=== PATIENT | female | born 1995 | race Caucasian/White ===

== ENCOUNTER 2021-10-02 10:51 | Emergency (ER) | payer BC ==
[2021-10-02] MEDS ORDERED: NA CHLORIDE 0.9% 250 ML ONE (11:47)
[2021-10-02] MEDS ORDERED: CASIRIVIMAB/IMDEVIMAB 10 ML VIAL ONE (11:48)
[2021-10-02] MEDS ORDERED: NA CHLORIDE 0.9% 50 ML ONE (12:12)
--- NOTE | 2021-10-02 13:46 | RAD REPORT ---
EXAM DESCRIPTION: RAD - Chest Single View - 10/02/2021 12:07 pm CLINICAL HISTORY: COVID +;Cough Chest pain. COMPARISON: No comparisons FINDINGS: Portable technique limits examination quality. The lungs are grossly clear. The heart is normal in size. No displaced fractures. IMPRESSION: No acute intrathoracic process suspected.
--- NOTE | 2021-10-02 13:54 | EDPHYS ---
Physician Documentation [facility] Name: Dilcia Marte Age: 26 yrs Sex: Female : 1995 Arrival Date: 10/02/2021 Time: 10:54 Bed 11 Private MD: ED Physician Steve Randall HPI: 10/02 12:01 This 26 yrs old Female presents to ER via Unassigned with complaints of COVID+. rn 12:01 The patient or guardian reports cough, that is intermittent, described as moderate. rn Onset: The symptoms/episode began/occurred 3 day(s) ago. Severity of symptoms: At their worst the symptoms were moderate, in the emergency department the symptoms are unchanged. Modifying factors: The symptoms are alleviated by nothing, the symptoms are aggravated by nothing. The patient has not experienced similar symptoms in the past. The patient has not recently seen a physician. Patient reports 3 or 4 days of symptoms, Covid PCR positive. Patient reports cough, headache, fatigue and malaise. Was Covid vaccinated. also Covid positive that he is getting better. Denies shortness of breath. - Immunization history:: Adult Immunizations unknown. - Family history:: not pertinent. - Social history:: Smoking status: unknown. - Hospitalizations: : No recent hospitalization is reported. ROS: 12:01 Constitutional: Negative for weight loss Eyes: Negative for injury, pain, redness, and rn mds coordinator, ENT: + for congestion Neck: Negative for injury, pain, and swelling, Cardiovascular: Negative for chest pain, palpitations, and edema, Respiratory: + cough, negative for sob, negative for hemoptysis Abdomen/GI: Negative for abdominal pain, nausea, vomiting, diarrhea, and constipation, MS/Extremity: Negative for injury and deformity, Skin: Negative for injury, rash, and discoloration, Neuro: Negative for numbness, tingling, and seizure. Exam: 12:01 Constitutional: This is a well developed, well nourished patient who is awake, alert, rn and in no acute distress. Head/Face: Normocephalic, atraumatic. Eyes: Periorbital areas with no swelling, redness, or edema. ENT: No stridor Neck: Trachea midline, no masses palpated, and no cervical lymphadenopathy. Supple, full range of motion without nuchal rigidity. No Meningismus. Cardiovascular: Regular rate and rhythm. No pulse deficits. Respiratory: Speaking full sentences, unlabored. No increased work of breathing, no retractions or nasal flaring. Skin: Warm, dry, no cyanosis MS/ Extremity: Pulses equal, no cyanosis. Equal circumference. Neuro: Awake and alert, GCS 15 Vital Signs: 11:15 BP 126 / 87 LA Sitting (auto/reg); Pulse 92 RA; Resp 20 S; Temp 98.6(O); Pulse Ox 100% eb on R/A; 12:26 BP 109 / 75; Pulse 82; Resp 18 S; Pulse Ox 98% on R/A; as6 13:27 BP 99 / 67; Pulse 63; Resp 18 S; Pulse Ox 99% on R/A; as6 14:16 BP 105 / 59; Pulse 78; Resp 18 S; Pulse Ox 99% on R/A; as6 MDM: 11:11 Patient medically screened. rn 13:53 Differential Diagnosis: Bronchitis Upper Respiratory Infection Viral Syndrome rn Pneumonia. Data reviewed: vital signs, nurses notes, radiologic studies, plain films, and as a result, I will discharge patient. Counseling: I had a detailed discussion with the patient and/or guardian regarding: the historical points, exam findings, and any diagnostic results supporting the discharge/admit diagnosis, radiology results, the need for outpatient follow up, to return to the emergency department if symptoms worsen or persist or if there are any questions or concerns that arise at home. Special discussion: I discussed with the patient/guardian in detail that at this point there is no indication for admission to the hospital. It is understood, however, that if the symptoms persist or worsen the patient needs to return immediately for re-evaluation. 10/02 11:55 Order name: XRAY Chest (1 view); Complete Time: 13:53 rn 10/02 10:54 Order name: IV Start; Complete Time: 12:20 rn Administered Medications: 12:20 Drug: Casirivimab-Imdevimab Dose Pack 120 mg/mL-120 mg/mL (EUA) 1 per protocol Route: as6 IV; Rate: calculated rate; Site: right antecubital; 14:21 Follow up: Response: No adverse reaction; IV Status: Completed infusion; IV Intake: as6 250ml Disposition Summary: 10/02/21 13:54 Discharge Ordered Location: Home rn Problem: new rn Symptoms: are unchanged rn Condition: Stable rn Diagnosis - SARS-associated coronavirus as the cause of diseases classified elsewhere rn Followup: rn - With: Private Physician - When: As needed - Reason: Recheck today's complaints, Re-evaluation by your physician Discharge Instructions: - Discharge Summary Sheet rn - COVID-19 rn - 10 Things You Can Do to Manage Your COVID-19 Symptoms at Home - [facility] rn - Viral Illness, Adult rn Forms: - Medication Reconciliation Form rn - Thank You Letter rn - Antibiotic alternative education teacher - Prescription Opioid Use rn Signatures: Dispatcher [employer] Steve Valles MD MD rn Slawson, Ashby, RN RN as6
--- NOTE | 2021-10-02 13:54 | ER ---
Nurse's Notes [facility] Name: Dilcia Marte Age: 26 yrs Sex: Female : 1995 Arrival Date: 10/02/2021 Time: 10:54 Bed 11 Private MD: Diagnosis: SARS-associated coronavirus as the cause of diseases classified elsewhere Presentation: 10/02 11:10 Chief complaint: Patient states: Requesting Regeneron infusion. Symptom onset was 3 ss days ago. Coronavirus screen: Client denies travel out of the [place] in the last 14 days. Ebola Screen: Patient denies exposure to infectious person. Patient denies travel to an Ebola-affected area in the 21 days before illness onset. Initial Sepsis Screen: Does the patient meet any 2 criteria? No. Patient's initial sepsis screen is negative. Does the patient have a suspected source of infection? No. Patient's initial sepsis screen is negative. Risk Assessment: Do you want to hurt yourself or someone else? Patient reports no desire to harm self or others. Onset of symptoms was September 29, 2021. 11:10 Method Of Arrival: Ambulatory ss 11:10 Acuity: JOHN 4 ss - Immunization history:: Adult Immunizations unknown. - Family history:: not pertinent. - Social history:: Smoking status: unknown. - Hospitalizations: : No recent hospitalization is reported. Screenin:24 Abuse screen: Denies threats or abuse. Nutritional screening: No deficits noted. as6 Tuberculosis screening: No symptoms or risk factors identified. Fall Risk None identified. Assessment: 12:24 General: Appears in no apparent distress. comfortable, Behavior is calm, cooperative. as6 Pain: Denies pain. Neuro: Reports headache. Cardiovascular: Capillary refill < 3 seconds Patient's skin is warm and dry. Respiratory: Reports cough that is Airway is patent Trachea midline Respiratory effort is even, unlabored, Respiratory pattern is regular, symmetrical. Derm: Skin is intact, is healthy with good turgor. 13:27 Reassessment: Patient appears in no apparent distress at this time. as6 Vital Signs: 11:15 BP 126 / 87 LA Sitting (auto/reg); Pulse 92 RA; Resp 20 S; Temp 98.6(O); Pulse Ox 100% eb on R/A; 12:26 BP 109 / 75; Pulse 82; Resp 18 S; Pulse Ox 98% on R/A; as6 13:27 BP 99 / 67; Pulse 63; Resp 18 S; Pulse Ox 99% on R/A; as6 14:16 BP 105 / 59; Pulse 78; Resp 18 S; Pulse Ox 99% on R/A; as6 ED Course: 10:54 Patient arrived in ED. mr 10:54 Steve Randall MD is Attending Physician. rn 11:10 Arm band placed on right wrist. ss 11:52 Remy Guerin, LIZETTE is Primary Nurse. as6 12:07 XRAY Chest (1 view) In Process Unspecified. EDMS 12:09 Triage completed. ss 12:23 Inserted saline lock: 20 gauge in right antecubital area, using aseptic technique. as6 12:25 Bed in low position. Call light in reach. Side rails up X 1. Adult w/ patient. Pulse ox as6 on. NIBP on. 14:20 No provider procedures requiring assistance completed. IV discontinued, intact, as6 bleeding controlled, No redness/swelling at site. Pressure dressing applied. Administered Medications: 12:20 Drug: Casirivimab-Imdevimab Dose Pack 120 mg/mL-120 mg/mL (EUA) 1 per protocol Route: as6 IV; Rate: calculated rate; Site: right antecubital; 14:21 Follow up: Response: No adverse reaction; IV Status: Completed infusion; IV Intake: as6 250ml Intake: 14:21 IV: 250ml; Total: 250ml. as6 Outcome: 13:54 Discharge ordered by . rn 14:20 Discharged to home ambulatory, with significant other. as6 14:20 Condition: stable 14:20 Discharge instructions given to patient, Instructed on discharge instructions, follow up and referral plans. Demonstrated understanding of instructions, follow-up care. 14:21 Patient left the ED. as6 Signatures: Dispatcher [employer] EMILYID Izabela Terry mr Steve Randall MD MD rn Smirch, Shelby, RN RN ss Botello, Elizabeth eb Slawson, Ashby, RN RN as6
[2021-10-02 14:36] VITALS: TEMP 98.6
[2021-10-02 14:38] VITALS: O2SAT 99
[2021-10-02 14:40] VITALS: BP 105/59
== END 2021-10-02 14:21 | disposition home or self-care (01) ==
LOC: ER 10:51
DX: U07.1 COVID-19 (principal)
CPT/HCPCS: 96365; 71045; 99284; 96366; J7050; M0243